=== PATIENT | female | born 1960 ===

== ENCOUNTER 2020-05-11 07:53 | Outpatient (CLI) | payer BC, SELFPAY ==
--- NOTE | 2020-05-11 08:00 | USCV_ITS ---
Ashleigh Salguero Age: 60 Gender: F : 1960 Exam Date: 05/11/2020 08:09 Ordering Phys: Oswaldo Brizuela MD Technologist: Sharif Obrien [place] [facility] [place]: HX RT UE THROMBUS HISTORY: RT ARM BLOOD CLOT PROCEDURES: Venous duplex imaging was performed in only the right upper extremity. The following venous structures were evaluated: internal jugular vein, subclavian vein, axillary vein, and brachial veins. In addition, the basilic vein, cephalic vein, radial vein, and ulnar vein. FINDINGS: THERE IS NON OCCLUDING THROMBUS IN THE RT JUGULAR AND SUBCLAVIAN. THERE ARE COLLATERIAL VEINS IN RT SHOULDER CARRING BLOOD FROM THE ARM VEINS. ONE OF THE BRACHIAL VEINS IN THE RT ARM IS OCCLUDED. THE BASILIC AND CELIPHALIC ARE NORMAL. CONCLUSIONS 1. Features of venous thrombosis involving the right jugular and subclavian veins, causing near total occlusion. Collateral veins are noted in the shoulder region. 2. One of the brachial veins was also found to be occluded. 3. Patent basilic and cephalic vein in the right upper extremity No previous studies available for comparison Dr Greg Ferraro MD [facility] (Electronically Signed) Final Date: 11 May 2020 23:12 S
== END 2020-05-11 07:54 | disposition home or self-care (01) ==
LOC: US 07:56
PROVIDERS: PCP Family Medicine; Visit Provider Family Medicine
DX: Z86.718 Personal history of other venous thrombosis and embolism (principal)
CPT/HCPCS: 93971

== ENCOUNTER 2020-09-01 07:48 | Outpatient (CLI) | payer BC, SELFPAY ==
--- NOTE | 2020-09-01 08:00 | USCV_ITS ---
Ashleigh Salguero Age: 60 Gender: F : 1960 Exam Date: 09/01/2020 08:18 Ordering Phys: Oswaldo Brizuela MD Technologist: Cassandra Amaya [place] [facility] [place] Indication: KNOWN RUE DVT, CURRENTLY ON BLOOD THINNERS HISTORY: KNOWN HISTORY OF RUE DVT PROCEDURES: Comparison:. 05/11/2020. Venous duplex imaging was performed in only the right upper extremity. The following venous structures were evaluated: internal jugular vein, subclavian vein, axillary vein, and brachial veins. In addition, the basilic vein, cephalic vein, radial vein, and ulnar vein. Serial compression, augmentation maneuvers, and spectral Doppler flow evaluation were performed. FINDINGS: Occlusive DVT SEEN in the right IJV, INNOM V, SUBCLAV, AND AXILLARY V. ALL OTHER VEINS APPEAR PATENT. Thrombus slightly improved since the prior exam. CONCLUSIONS Right upper extremity deep venous thrombosis. Persistent but slightly improved DVT. Dr. Melany Cervantes DO (Electronically Signed) Final Date: 01 September 2020 08:58 Amended: 01 September 2020 09:04 C
== END 2020-09-01 07:49 | disposition home or self-care (01) ==
LOC: RAD 07:52
PROVIDERS: PCP Family Medicine; Visit Provider Family Medicine
DX: I82.A11 Acute embolism and thrombosis of right axillary vein (principal)
CPT/HCPCS: 93971

== ENCOUNTER 2021-01-25 07:10 | Outpatient (CLI) | payer BC, SELFPAY ==
--- NOTE | 2021-01-25 07:15 | USCV_ITS ---
Ashleigh Salguero Age: 60 Gender: F : 1960 Exam Date: 01/25/2021 07:36 Ordering Phys: Oswaldo Brizuela MD Technologist: VALENTIN Exam Location: [facility] [place] Indication: ACUTE EMBOLISM AND THROMBUS PROCEDURES: Venous duplex imaging was performed in only the right upper extremity. The following venous structures were evaluated: internal jugular vein, subclavian vein, axillary vein, and brachial veins. Serial compression, augmentation maneuvers, and spectral Doppler flow evaluation were performed. FINDINGS: Thrombus still present today in the right upper extremity within the IJV, Innominate, subclavian, and the axillary. All other veins examined appear free of thrombus at this time. CONCLUSIONS Chronic DVT in the Right Upper extremity veins similiar to 08/31. No new thrombus D/W Dr. Gelacio Ramos MD (Electronically Signed) Final Date: 25 January 2021 16:29 S
== END 2021-01-25 07:11 | disposition home or self-care (01) ==
LOC: US 07:11
PROVIDERS: PCP Family Medicine; Visit Provider Family Medicine
DX: I82.A11 Acute embolism and thrombosis of right axillary vein (principal)
CPT/HCPCS: 93971

== ENCOUNTER 2024-08-05 07:44 | Inpatient (IN) | payer BC, SELFPAY ==
[2024-08-05] VITALS (18 sets, daily range): BP systolic 99–136; BP diastolic 63–82; PULSE 80–108; RESP 16–22; TEMP 36.5–36.9; O2SAT 86–95; BMI 48.4
--- NOTE | 2024-08-05 07:53 | ECG_ITS ---
[facility] Test Date: 2024-08-05 Pat Name: Ashleigh Salguero Department: Room: Gender: Female Traffic Clerk: : 1960 Requested By: Bobby Best Order Number: [id number] Reading MD: KATIE CESAR Measurements Intervals [place] Rate: 100 P: 54 [place]: 141 QRS: -32 QRSD: 85 T: 52 QT: 349 QTc: 451 Interpretive Statements SINUS TACHYCARDIA POSSIBLE LEFT ATRIAL ENLARGEMENT [-0.1mV P-WAVE IN V1/V2] LEFT AXIS DEVIATION [QRS AXIS < -30] LOW QRS VOLTAGE [QRS DEFLECTION < 0.5/1.0 mV IN LIMB/CHEST LEADS] POSSIBLE ANTERIOR MYOCARDIAL INFARCTION , OF INDETERMINATE AGE [30 ms Q WAVE IN V3/V4, OR R < 0.2 mV IN V4] No previous ECG available for comparison Electronically Signed On 08-05-2024 19:03:30 CDT by KATIE CESAR [id number]
--- NOTE | 2024-08-05 08:11 | XRR_ITS ---
PROCEDURE INFORMATION: Exam: XR Chest Exam date and time: 08/05/2024 8:15 AM Age: 64 years old Clinical indication: Shortness of breath; Additional info: Dyspnea/cough TECHNIQUE: Imaging protocol: Radiologic exam of the chest. Views: 1 view. COMPARISON: No relevant prior studies available. FINDINGS: Lungs: Unremarkable. No consolidation. Pleural spaces: Unremarkable. No pleural effusion. No pneumothorax. Heart/Mediastinum: Unremarkable. No cardiomegaly. Bones/joints: Unremarkable. XR/XR chest 1V portable [id number] IMPRESSION: No acute findings.
[2024-08-05 08:25] LABS: Basophils # 0.1 10^3/uL (0.0-0.1); Basophils % 0.9 %; Eosinophils % 0.3 %; Hematocrit 56.9 % (36-47); Lymphocytes # 0.6 10^3/uL (0.8-4.8); Lymphocytes % 9.2 %; Mean Corpuscular HGB Conc 33.2 g/dL (30-55); Mean Corpuscular Hemoglobin 29.4 pg (27-33); Mean Corpuscular Volume 88.5 fl (85-98); Mean Platelet Volume 9.6 fL (7.4-10.4); Monocytes # 0.4 10^3/uL (0.2-0.9); Monocytes % 5.9 %; Neutrophils # 5.81 10^3/uL (1.8-7.7); Neutrophils % 83.4 %; Nucleated Red Blood Cells % 0 %; Platelet Count 210 10^3/cmm (157-399); Red Blood Count 6.43 10^6/uL (3.85-5.65); Red Cell Distribution Width 14.4 % (12.1-15.1); White Blood Count 6.96 10^3/uL (3.29-11.43)
[2024-08-05 08:49] LABS: Alanine Aminotransferase 27 U/L (0-33); Albumin Level 3.8 g/dL (3.5-5.2); Alkaline Phosphatase 121 U/L (35-105); Anion Gap 15.8 (5-19); Aspartate Amino Transferase 21 U/L (0-32); Blood Urea Nitrogen 6 mg/dL (8-23); Calcium 9.1 mg/dL (8.5-10.5); Carbon Dioxide 27 mmol/L (22-29); Chloride 91 mmol/L (98-107); Globulin 3.9 g/dL (1.3-4.6); Glucose 127 mg/dL (65-115); NT Pro B Type Natriuretic Pept 391 pg/mL (0-125); Osmolality Calculated 269 mOsm/kg (285-295); Potassium 3.8 mmol/L (3.5-5.1); Sodium 130 mmol/L (136-145); Total Bilirubin 0.6 mg/dL (0.15-1.2); Total Protein 7.7 g/dL (6.6-8.7)
[2024-08-05 09:06] LABS: Bilirubin Urine Negative (Negative); Blood Urine 3+ (Negative); Glucose Urine UA Negative (Normal); Ketones Urine Negative (Negative); Leukocyte Esterase Urine Negative (Negative); Nitrate Urine Negative (Negative); Protein Urine Negative (Negative); Specific Gravity, Urine 1.006 (1.005-1.030); Urine Appearance Clear (CLEAR); Urine Color Yellow (Yellow); pH Urine 6.5 (5-7)
[2024-08-05 09:11] LABS: Add Urine Microscopic? YES; Bacteria Urine None Seen /hpf; Hyaline Casts Urine 0-4 /lpf; RBC Urine 21-50 /hpf (0-2); Squamous Epithelial Cell Urine 0-5 /hpf (0-5); WBC Urine 0-5 /hpf (0-5)
[2024-08-05 09:22] LABS: Add Urine Culture? Yes
[2024-08-05 09:23] LABS: Influenza A NEGATIVE (Negative); Influenza B NEGATIVE (Negative); Respiratory Syncytial Virus Ce NEGATIVE (Negative); SARS-CoV-2 PCR NEGATIVE (Negative)
--- NOTE | 2024-08-05 09:23 | ED_ITS ---
HPI - SOB/Dyspnea 2 General: Chief Complaint: Shortness of Breath/Dyspnea Stated Complaint: sob Time Seen by Provider: 08/05/24 08:09 History of Present Illness: HPI Narrative: 64-year-old female presents to the emerg ency room complaining of shortness of breath. Patient has a history of a previous PE she also has a history of breast cancer considered to be in remission at this time. She is not currently on any anticoagulation. No chest pain at this time. Is short of breath does not usually use oxygen at home has not had a productive cough. Associated symptoms: Reports chest congestion; Deny abdominal pain, chest pain, fever(s) or hemoptysis Related Data Home Medications ?Medication ?Instructions ?Recorded ?Confirmed acetaminophen 500 mg tablet 500 mg PO Q6H PRN Fever Or Pain 08/05/24 08/05/24 (Tylenol Extra Strength) Allergies Allergy/AdvReac Type Severity Reaction Status Date / Time codeine Allergy N/V Verified 08/05/24 10:57 cortisone Allergy ALGY-Rash Verified 08/05/24 10:57 latex Allergy rash Verified 08/05/24 10:57 nickel Allergy rash Verified 08/05/24 10:57 Penicillins Allergy anaphylaxis Verified 08/05/24 10:57 Review of Systems 2 Const: Denies: fever(s) or chills Card: Denies: chest pain Resp: Reports: dyspnea, non-productive cough, wheezing and chest congestion; Denies: hemoptysis GI: Denies: abdominal pain : Denies: dysuria, urinary frequency or urinary urgency Musc: Denies: neck pain or back pain Skin/Breast: Denies: rash PFSH ED 2 PFSH: Medical History Tobacco abuse Pulmonary embolus Social History Smoking and tobacco/nicotine status: current every day tobacco/nicotine user Alcohol intake: never Substance/Drug Use: never Physical Exam 2 Const: GENERAL APPEARANCE: cooperative ORIENTATION/CONSCIOUSNESS: Yes awake, Yes oriented to person, Yes oriented to place and Yes oriented to time HENMT: COMMON NORMALS: normocephalic, atraumatic and hearing grossly normal bilaterally HEAD & SCALP: normocephalic and atraumatic Resp: AUSCULTATION: wheezes Cardio: COMMON NORMALS: regular rate, regular rhythm and No murmurs present (Cardio) RATE: regular rate RHYTHM: regular rhythm GI: COMMON NORMALS: Soft to palpation and No hepatosplenomegaly present A USCULTATION: Yes normoactive bowel sounds PALPATION: Yes Soft to palpation, No Tenderness to palpation present (GI), No Guarding due to palpation present (GI) and Yes No hepatosplenomegaly present Extremity: COMMON NORMALS: normal to inspection, capillary refill normal, no clubbing, cyanosis or edema, no calf tenderness and no pedal edema Neuro: SENSORIUM/ORIENTATION: Yes oriented to person, Yes oriented to place and Yes oriented to time Skin: COMMON NORMALS: no rashes or lesions noted GENERAL SKIN EXAM: no rashes or lesions noted Course 2 Vital Signs: Vital signs: Vital Signs Temperature 98.1 F 08/05/24 07:53 Pulse Rate 80 08/05/24 14:29 Respiratory Rate 16 08/05/24 14:29 Blood Pressure 104/72 08/05/24 14:29 Pulse Oximetry 93 08/05/24 14:29 Oxygen Delivery Me thod Nasal Cannula 08/05/24 14:11 Oxygen Flow Rate 3 08/05/24 14:11 MDM - SOB/Dyspnea Medical Decision Making Patient improved some with treatment however still requiring 3 L which is a new oxygen requirement for her. No apparent PE on CT there is some Mild bronchial wall thickening suspect this is what is causing exacerbation of her COPD discussed with hospitalist will admit steroids aggressive pulmonary toilet. Medical Records I reviewed the patient's medical records. Lab Data I reviewed the patient's lab results. 08/05/24 08:17 08/05/24 08:17 Labs/Radiology: Radiology Impressions Chest X-Ray 08/05/24 08:11 IMPRESSION: No acute findings. Chest CTA 08/05/24 09:29 IMPRESSION: 1. No evidence of pulmonary embolism. 2. Mild COPD in multifocal pulmonary scarring. Mild fibrotic changes which may be post treatment in nature. 3. Multifocal bronchial wall thickening which can be seen with viral airway disease. Laboratory Results WBC 6.96 10^3/uL (3.29-11.43) 08/05/24 08:17 RBC 6.43 10^6/uL (3.85-5.65) H 08/05/24 08:17 Hgb 18.90 g/dL (11.27-16.99) H 08/05/24 08:17 Hct 56.9 % (36-47) H 08/05/24 08:17 MCV 88.5 fl (85-98) 08/05/24 08:17 MCH 29.4 pg (27-33) 08/05/24 08:17 MCHC 33.2 g/dL (30-55) 08/05/24 08:17 RDW 14.4 % (12.1-15.1) 08/05/24 08:17 Plt Count 210 10^3/cmm (157-399) 08/05/24 08:17 MPV 9.6 fL (7.4-10.4) 08/05/24 08:17 Neut % (Auto) 83.4 % 08/05/24 08:17 Lymph % (Auto) 9.2 % 08/05/24 08:17 [place] % (Auto) 5.9 % 08/05/24 08:17 Eos % (Auto) 0.3 % 08/05/24 08:17 Baso % (Auto) 0.9 % 08/05/24 08:17 Neut # (Auto) 5.81 10^3/uL (1.8-7.7) 08/05/24 08:17 Lymph # (Auto) 0.6 10^3/uL (0.8-4.8) L 08/05/24 08:17 [place] # (Auto) 0.4 10^3/uL (0.2-0.9) 08/05/24 08:17 Eos # (Auto) 0.0 10^3/uL (0.0-0.8) 08/05/24 08:17 Baso # (Auto) 0.1 10^3/uL (0.0-0.1) 08/05/24 08:17 Nucleated RBC % (auto) 0 % 08/05/24 08:17 Nucleated RBCs # 0.0 /100WBC 08/05/24 08:17 Sodium 130 mmol/L (136-145) L 08/05/24 08:17 Potassium 3.8 mmol/L (3.5-5.1) 08/05/24 08:17 Chloride 91 mmol/L (98-107) L 08/05/24 08:17 Carbon Dioxide 27 mmol/L (22-29) 08/05/24 08:17 Anion Gap 15.8 (5-19) 08/05/24 08:17 BUN 6 mg/dL (8-23) L 08/05/24 08:17 Creatinine 0.6 mg/dL (0.5-0.9) 08/05/24 08:17 GFR Calculation 101.0 mL/min (90-130) 08/05/24 08:17 Glucose 127 mg/dL (65-115) H 08/05/24 08:17 Calculated Osmolality 269 mOsm/kg (285-295) L 08/05/24 08:17 Calcium 9.1 mg/dL (8.5-10.5) 08/05/24 08:17 Total Bilirubin 0.6 mg/dL (0.15-1.2) 08/05/24 08:17 AST 21 U/L (0-32) 08/05/24 08:17 ALT 27 U/L (0-33) 08/05/24 08:17 Alkaline Phosphatase 121 U/L (35-105) H 08/05/24 08:17 NT-Pro-B Natriuret Pep 391 pg/mL (0-125) H 08/05/24 08:17 NT-Pro-B Natriuret Pep 394 pg/mL (0-125) H 08/05/24 08:17 Total Protein 7.7 g/dL (6.6-8.7) 08/05/24 08:17 Albumin 3.8 g/dL (3.5-5.2) 08/05/24 08:17 Globulin 3.9 g/dL (1.3-4.6) 08/05/24 08:17 Urine Color Yellow (Yellow) 08/05/24 08:52 Urine Appearance Clear (CLEAR) 08/05/24 08:52 Urine pH 6.5 (5-7) 08/05/24 08:52 Ur Specific [place] 1.006 (1.005-1.030) 08/05/24 08:52 Urine Protein Negative (Negative) 08/05/24 08:52 Urine Glucose (UA) Negative (Normal) 08/05/24 08:52 Urine Ketones Negative (Negative) 08/05/24 08:52 Urine Blood 3+ (Negative) A 08/05/24 08:52 Urine Nitrate Negative (Negative) 08/05/24 08:52 Urine Bilirubin Negative (Negative) 08/05/24 08:52 Urine Urobilinogen 1.0 mg/dL (Negative) 08/05/24 08:52 Ur Leukocyte Esterase Negative (Negative) 08/05/24 08:52 Urine RBC 21-50 /hpf (0-2) H 08/05/24 08:52 Urine WBC 0-5 /hpf (0-5) 08/05/24 08:52 Ur Squamous Epith Cells 0-5 /hpf (0-5) 08/05/24 08:52 Amorphous Sediment Not Reportable 08/05/24 08:52 Urine Bacteria None seen /hpf (NONE) 08/05/24 08:52 Hyaline Casts 0-4 /lpf H 08/05/24 08:52 Influenza A (PCR) Negative (Negative) 08/05/24 08:17 Influenza Type B (PCR) Negative (Negative) 08/05/24 08:17 RSV (PCR) Negative (Negative) 08/05/24 08:17 SARS-CoV-2 (PCR) Negative (Negative) 08/05/24 08:17 All radiology interpretation(s) finalized by discharge Discharge Plan Discharge Patient Disposition: Admitted As Inpatient Admit Provider: Reginald Mcclure Clinical Impression: COPD with acute exacerbation, Breast cancer, Hx of pulmonary embolus Condition: Stable Coding Level of Care Code ED Language Instructor for Michelle Meier
--- NOTE | 2024-08-05 09:29 | CTR_ITS ---
PROCEDURE INFORMATION: Exam: CTA Chest With Contrast Exam date and time: 08/05/2024 9:39 AM Age: 64 years old Clinical indication: Dyspnea; Prior surgery; Surgery date: 6+ months; Surgery type: 2x mastectomy; Additional info: Dyspnea/hx pe/hx breast CA TECHNIQUE: Imaging protocol: Computed tomographic angiography of the chest with contrast. Exam focused on the arteries. 3D rendering (Not supervised by radiologist): MIP and/or 3D reconstructed images were created by the technologist. Radiation optimization: All CT scans at this facility use at least one of these dose optimization techniques: automated exposure control; mA and/or kV adjustment per patient size (includes targeted exams where dose is matched to clinical indication); or iterative reconstruction. Contrast material: OMNIPAQUE 350; Contrast volume: 100 ml; Contrast route: INTRAVENOUS (IV); COMPARISON: CR (CHEST, ) 08/05/2024 8:15 AM RADIATION DOSE METRICS: Total DLP (mGy-cm): 548.81 FINDINGS: Pulmonary arteries: Normal. No pulmonary emboli. Aorta: Unremarkable. No aortic aneurysm. No aortic dissection. Lungs: There is mild COPD and mild multifocal pulmonary scarring. Mild fibrotic changes are seen along the anterior right upper lobe and right middle lobe. There is multifocal bronchial wall thickening identified. Pleural spaces: Unremarkable. No pneumothorax. No pleural effusion. Heart: Unremarkable. No cardiomegaly. No pericardial effusion. Lymph nodes: Unremarkable. No enlarged lymph nodes. Bones/joints: Unremarkable. No acute fracture. Soft tissues: Unremarkable. CT/CT angio chest PE protcl [id number] IMPRESSION: 1. No evidence of pulmonary embolism. 2. Mild COPD in multifocal pulmonary scarring. Mild fibrotic changes which may be post treatment in nature. 3. Multifocal bronchial wall thickening which can be seen with viral airway disease.
[2024-08-05] MEDS: iohexol 350 mg/mL 500 mL Btl (per mL) IV (09:56)
--- NOTE | 2024-08-05 10:45 | PC.NURSE ---
informed of spo2 ranging 88-90 on RA. okayed placing pt on 1-2 L NC PRN.
[2024-08-05] MEDS: methylPREDNISolone sod succ 125 mg/2 mL INJ IVP (10:53)
[2024-08-05] MEDS: ipratropium-albuterol 3 mL Neb INHALATION ×4 (11:10→20:50)
[2024-08-05 12:57] LABS: ABG PCO2 42.2 mmHg (35-45); ABG PH Result 7.43 (7.35-7.45); Alveolar-Arterial Oxygen Gradi 13.6 mmHg (5-10); Arterial Blood Gas Hematocrit 59.4 % (37-47); Base Excess ABG 2.8 mmol/L (-2.0-2.0); Blood Gas Allen Test Pos; Blood Gas Operator Identificat MONRO; Blood Gas Sample Site Radial, left; Blood Gas Sample Type Arterial; HCO3 ABG 27.7 mmol/L (22-26); HGB O2 Sat 91.9 % (95-100); Ionized Calcium Level - ABG 1.1 mmol/L (1.1-1.4); Methemoglobin 0.7 % (0.4-1.5); Oxygen Device NC; Oxygen Saturation ABG 95.5; PO2 ABG 71.5 mmHg (80.0-100.0); PO2 FiO2 Ratio Arterial Blood 223; Potassium Level - ABG 3.6 mmol/L (3.5-5.0); Total Hemoglobin 19.4 g/dL (12-16)
[2024-08-05 13:10] LABS: Troponin(5th) Baseline < 6 ng/L (0-10)
[2024-08-05 13:43] LABS: NT Pro B Type Natriuretic Pept 394 pg/mL (0-125)
--- NOTE | 2024-08-05 14:24 | P.HP_ITS ---
Providers/Chief Complaint 2 Admitting Physician: Reginald Mclcure MD Primary Care Provider: Oswaldo Brizuela MD Chief Complaint: sob History of Present Illness Ashleigh Salguero is a 64 year old female with a past medical history of breast cancer status post bilateral mastectomy, history of DVT right axillary vein, history of pulmonary embolism, not on anticoagulant therapy, who presents to [facility] due to complaints of shortness of breath. Patient tells me that she has been smoking since she is 9 years old, she does not have a formal diagnosis of COPD, she does report recent increased shortness of breath, increased wheezing, does have a nonproductive cough, no fevers, no chills, she quit smoking a few days ago, no chest pain, no palpitations, Review of Systems 2 Const: Denies: fever(s) or chills Card: Denies: chest pain Resp: Reports: dyspnea GI: Denies: abdominal pain Medications/Allergies Home Medications ?Medication ?Instructions ?Recorded ?Confirmed ?Last Taken ?Type acetaminophen 500 mg tablet 500 mg PO Q6H PRN Fever Or Pain 08/05/24 08/05/24 Unknown History (Tylenol Extra Strength) Allergies Allergy/AdvReac Type Severity Reaction Status Date / Time codeine Allergy N/V Verified 08/05/24 10:57 cortisone Allergy ALGY-Rash Verified 08/05/24 10:57 latex Allergy rash Verified 08/05/24 10:57 nickel Allergy rash Verified 08/05/24 10:57 Penicillins Allergy anaphylaxis Verified 08/05/24 10:57 PFSH Acute 2 PFSH: Medical History Tobacco abuse Pulmonary embolus Social History Smoking and tobacco/nicotine status: current every day tobacco/nicotine user Alcohol intake: never Substance/Drug Use: never Vitals/I&O/Wt Last Vital Signs Temp 98.1 F 08/05/24 07:53 Pulse 89 08/05/24 14:11 Resp 16 08/05/24 14:11 BP 104/72 08/05/24 14:11 Pulse Ox 90 08/05/24 14:11 O2 Del Method Nasal Cannula 08/05/24 14:11 O2 Flow Rate 3 08/05/24 14:11 Weight last 48 hrs Weight 108.862 kg Physical Exam 2 Const: COMMON NORMALS: no acute distress and patient oriented x3 Eye: COMMON NORMALS: Equal, round and reactive pupils present and EOMs intact bilaterally Resp: COMMON NORMALS: normal respiratory effort, No retractions and No use of accessory muscles AUSCULTATION: crackles and wheezes Cardio: COMMON NORMALS: no JVD, regular rate, regular rhythm, S1 normal heart sound present and S2 normal heart sound present RATE: regular rate RHYTHM: regular rhythm HEART SOUNDS: S1 normal heart sound present and S2 normal heart sound present GI: COMMON NORMALS: Normal to inspection, nondistended, normoactive bowel sounds present, Soft to palpation and non-tender Extremity: COMMON NORMALS: no pedal edema Neuro: COMMON NORMALS: patient oriented x3, CN's II-XII intact bilaterally and moves all extremities Psych: COMMON NORMALS: mental status grossly normal Data 08/05/24 08:17 08/05/24 08:17 A&P Assessment and plan (1) COPD with acute exacerbation: Plan Acute COPD exacerbation, with hypoxia, CTA CT/CT angio chest PE protcl [id number] IMPRESSION: 1. No evidence of pulmonary embolism. 2. Mild COPD in multifocal pulmonary scarring. Mild fibrotic changes which may be post treatment in nature. 3. Multifocal bronchial wall thickening which can be seen with viral airway disease. Plan - Monitor respiratory status closely - DuoNeb - Budesonide - Solu-Medrol 40 mg IV every 8 hours - Continue doxycycline - Full code - Lovenox for DVT prophylaxis PDMP PDMP Reviewed: Not Reviewed Attestations 2 Medical Necessity Statement*: Patient requires hospitalization, inpatient, greater than 2 midnights for acute COPD exacerbation Diagnoses COPD with acute exacerbation J44.1
--- NOTE | 2024-08-05 14:34 | ECG_ITS ---
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: : 1960 Requested By: Bobby Best Order Number: [id number] Reading MD: KATIE CESAR Measurements Intervals [place] Rate: 88 P: 59 [place]: 156 QRS: -24 QRSD: 84 T: 36 QT: 378 QTc: 459 Interpretive Statements SINUS RHYTHM POSSIBLE LEFT ATRIAL ENLARGEMENT [-0.1mV P-WAVE IN V1/V2] LOW QRS VOLTAGE [QRS DEFLECTION < 0.5/1.0 mV IN LIMB/CHEST LEADS] ANTEROSEPTAL MYOCARDIAL INFARCTION , OF INDETERMINATE AGE [40+ ms Q WAVE IN V1-V4] Compared to ECG 08/05/2024 07:53:10 Sinus tachycardia no longer present Left-axis deviation no longer present Myocardial infarct finding still present Electronically Signed On 08-05-2024 19:07:08 CDT by KATIE CESAR [email or web address]
--- NOTE | 2024-08-05 14:56 | PC.SOCIAL ---
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 She had no oxygen, nebulizer, or cpap or bipap at home. Patient does have a walker, cane, and a wheelchair that she personally perchased from second hand stores. Does not have any advanced directives or a living will, and no durable power of estate attorney at this time.
[2024-08-05 15:34] LABS: Estmated Average Glucose 134; Hemoglobin A1C 6.3 % (4.0-6.0)
[2024-08-05 15:45] LABS: Troponin 5 2HR < 6.0 ng/L (0-10); Troponin 5 2HR Delta 0 ABS# (0-10)
[2024-08-05 15:52] LABS: Thyroid Stimulating Hormone 5.18 uIU/mL (0.27-4.20)
[2024-08-05] MEDS: enoxaparin 40 mg/0.4 mL Syringe SUBCUT (15:57)
[2024-08-05] MEDS: pantoprazole 40 mg SDV IVP (15:57)
[2024-08-05] MEDS: doxycycline 100 mg Tablet PO (17:43)
--- NOTE | 2024-08-05 18:19 | ECG_ITS ---
[employer] [facility] Test Date: 2024-08-05 Pat Name: Ashleigh Salguero Department: Room: 253 Gender: Female Staff Radiation Therapist: : 1960 Requested By: Bobby Best Order Number: [id number] Reading MD: KATIE CESAR Measurements Intervals [place] Rate: 89 P: 63 [place]: 159 QRS: -22 QRSD: 86 T: 67 QT: 375 QTc: 457 Interpretive Statements SINUS RHYTHM POSSIBLE LEFT ATRIAL ENLARGEMENT [-0.1mV P-WAVE IN V1/V2] LOW QRS VOLTAGE [QRS DEFLECTION < 0.5/1.0 mV IN LIMB/CHEST LEADS] POSSIBLE ANTERIOR MYOCARDIAL INFARCTION , OF INDETERMINATE AGE [30 ms Q WAVE IN V3/V4, OR R < 0.2 mV IN V4] Compared to ECG 08/05/2024 15:59:30 No significant changes Electronically Signed On 08-05-2024 19:07:00 CDT by KATIE CESAR [email or web address]
[2024-08-05] MEDS: budesonide 0.5 mg/2 mL Neb INHALATION (20:50)
[2024-08-06] VITALS (7 sets, daily range): BP systolic 110–130; BP diastolic 71–79; PULSE 79–95; RESP 16–20; TEMP 36.3–36.6; O2SAT 86–95
[2024-08-06] MEDS: methylPREDNISolone sod succ 40 mg/mL INJ IVP (05:17)
[2024-08-06 06:19] LABS: Basophils % 0.4 %; Hematocrit 55.9 % (36-47); Lymphocytes # 0.5 10^3/uL (0.8-4.8); Lymphocytes % 8.9 %; Mean Corpuscular HGB Conc 32.6 g/dL (30-55); Mean Corpuscular Hemoglobin 28.8 pg (27-33); Mean Corpuscular Volume 88.4 fl (85-98); Mean Platelet Volume 10.1 fL (7.4-10.4); Monocytes # 0.4 10^3/uL (0.2-0.9); Monocytes % 6.8 %; Neutrophils # 4.42 10^3/uL (1.8-7.7); Neutrophils % 83.7 %; Nucleated Red Blood Cells % 0 %; Platelet Count 217 10^3/cmm (157-399); Red Blood Count 6.32 10^6/uL (3.85-5.65); Red Cell Distribution Width 14.4 % (12.1-15.1); White Blood Count 5.28 10^3/uL (3.29-11.43)
[2024-08-06 06:45] LABS: Anion Gap 17.7 (5-19); Blood Urea Nitrogen 11 mg/dL (8-23); Calcium 9.2 mg/dL (8.5-10.5); Carbon Dioxide 26 mmol/L (22-29); Chloride 96 mmol/L (98-107); Creatinine Clr Calc Pharmacy 157.3724; Glucose 118 mg/dL (65-115); Osmolality Calculated 282 mOsm/kg (285-295); Potassium 3.7 mmol/L (3.5-5.1); Sodium 136 mmol/L (136-145)
[2024-08-06] MEDS: doxycycline 100 mg Tablet PO (07:44)
[2024-08-06] MEDS: ipratropium-albuterol 3 mL Neb INHALATION (08:51)
[2024-08-06] MEDS: budesonide 0.5 mg/2 mL Neb INHALATION (08:51)
--- NOTE | 2024-08-06 10:16 | PC.CHAP ---
Pastoral Care Encounter/Spiritual Assessment Type of Contact [] Declined decal cutter visit [] Patient/Family/Request visit [] Outpatient visit [] Follow-up visit [] Physician referral [] Code/Alert [x] Routine visit [] Staff referral [] Actively dying [] Patient sleeping [] Family support [] [] Out of room [] Palliative care [] [] Receiving care in room [] Pre-surgical visit [] Trauma [] Long length of stay [] ICU visit [] Other: Relational/Emotional Strength [x] Patient feels connected with others/family/visitors/staff [] Distress [] Loneliness/isolation [] Abandonment Spirituality of Patient [x] Person of [place] [] Attends Holiness of their [place] [x] Believes in Prayer [] Reads Bible or Uatsdin materials [] There are Spiritual issues to be addressed Food Counselor Interventions [x] Prayer [x] Active listening [] Non-anxious presence [x] Spiritual/emotional support [] Crisis/trauma care [] Spiritual counseling [] Bereavement support [] Provided bereavement packet [] Provided Bible/devotional materials [] Provided toy/stuffed animal, coloring book to patient or family member [] Provided Communion [] Anointing/[place] [] Salvation [x] Completed spiritual assessment [] Other: Impact on Illness or Injury [] Angry [] Fearful [] Anxious [] Often cries [] Exhaustion [] Unable to work [] Unable to attend adventism [] Unable to walk/stand [] Unable to read [] Unable to drive [] Unable to eat/drink [] Unable to sleep [] Unable to be with family [] Patient intubated [] Other: Summary Time spent with patient 5 min
--- NOTE | 2024-08-06 12:26 | P.DS_ITS ---
Discharge Providers Date of Admission: 08/05/24 12:29 Date of Discharge: August 06, 2024 Attending Provider at Admission: Reginald Mcclure MD Attending Provider at Discharge: Reginald Mcclure MD Primary Care Provider: Oswaldo Brizuela MD Diagnoses at Discharge Discharge Diagnosis (1) COPD with acute exacerbation: Status: Acute Reason for Visit Reason for Visit: sob Hospital Course Hospital Course Ashleigh Salguero is a 64 year old female with a past medical history of breast cancer status post bilateral mastectomy, history of DVT right axillary vein, history of pulmonary embolism, not on anticoagulant therapy, who presents to [facility] due to complaints of shortness of breath. Patient tells me that she has been smoking since she is 9 years old, she does not have a formal diagnosis of COPD, she does report recent increased shortness of breath, increased wheezing, does have a nonproductive cough, no fevers, no chills, she quit smoking a few days ago, no chest pain, no palpitations, Patient was admitted to [facility] for COPD exacerbation, received oxygen therapy, steroid therapy, oral antibiotic therapy overall clinically improved. Will be discharged on a prednisone burst, doxycycline, albuterol, Advair with a close follow-up with primary care provider as outpatient. I had offered to refer patient to pulmonary however patient has declined, she wants to talk to Dr. Brizuela Patient does not have a formal diagnosis of COPD, CT imaging does show mild COPD in multifocal pulmonary scarring. Follow-up with Dr. Brizuela, discharged on Advair, albuterol. She did receive radiation therapy for her history of breast cancer, certainly imaging findings could be from radiation treatment. Patient was a smoker she has recently quit smoking, advised to continue smoking cessation counseling Patient did require oxygen on discharge Patient does have erythrocytosis on her blood work, hemoglobin 18.2, and her urine was positive for blood, 21-50RBCs. She is declined to follow-up with specialists in [place]. I have strongly recommended for her to follow-up with Dr. Brizuela as outpatient. Consider repeating CBC in 1 week, with repeat UA. If patient continues to have hematuria, and erythrocytosis she will need to have CT imaging of her kidneys to rule out renal cell carcinoma, EPO levels, and further workup. But potentially erythrocytosis could be from her smoking history, and hypoxia from COPD. Physical Exam Const: COMMON NORMALS: no acute distress and patient oriented x3 Resp: COMMON NORMALS: normal respiratory effort, No retractions, No use of accessory muscles and clear to auscultation bilaterally AUSCULTATION: clear to auscultation bilaterally Cardio: COMMON NORMALS: regular rate, regular rhythm, S1 normal heart sound present and S2 normal heart sound present RATE: regular rate RHYTHM: regular rhythm HEART SOUNDS: S1 normal heart sound present and S2 normal heart sound present GI: COMMON NORMALS: Normal to inspection, nondistended, normoactive bowel sounds present and non-tender Extremity: COMMON NORMALS: no pedal edema Neuro: COMMON NORMALS: patient oriented x3 Psych: COMMON NORMALS: mental status grossly normal Discharge Data Studies Completed and Pending Completed Studies During Hospitalization Category Date Time Status CT angio chest PE protcl [id number] Stat Cat Scan 08/05/24 09:29 Completed XR chest 1V portable [id number] Stat Exams 08/05/24 08:11 Completed Pending at discharge Category Date Time Status Basic Metabolic Panel AM LABS Lab 08/07/24 04:00 Ordered Basic Metabolic Panel AM LABS Lab 08/08/24 04:00 Ordered Blood Culture Stat Lab 08/05/24 14:51 Results Complete Blood Count w/Auto AM LABS Lab 08/07/24 04:00 Ordered Complete Blood Count w/Auto AM LABS Lab 08/08/24 04:00 Ordered Troponin(5th) 6 hour. Timed Lab 08/05/24 18:34 Ordered Urine Culture Stat Lab 08/05/24 08:52 Results Radiology Impressions Chest X-Ray 08/05/24 08:11 IMPRESSION: No acute findings. Chest CTA 08/05/24 09:29 IMPRESSION: 1. No evidence of pulmonary embolism. 2. Mild COPD in multifocal pulmonary scarring. Mild fibrotic changes which may be post treatment in nature. 3. Multifocal bronchial wall thickening which can be seen with viral airway disease. Laboratory Results WBC 5.28 10^3/uL (3.29-11.43) 08/06/24 05:11 RBC 6.32 10^6/uL (3.85-5.65) H 08/06/24 05:11 Hgb 18.20 g/dL (11.27-16.99) H 08/06/24 05:11 Hct 55.9 % (36-47) H 08/06/24 05:11 MCV 88.4 fl (85-98) 08/06/24 05:11 MCH 28.8 pg (27-33) 08/06/24 05:11 MCHC 32.6 g/dL (30-55) 08/06/24 05:11 RDW 14.4 % (12.1-15.1) 08/06/24 05:11 Plt Count 217 10^3/cmm (157-399) 08/06/24 05:11 MPV 10.1 fL (7.4-10.4) 08/06/24 05:11 Neut % (Auto) 83.7 % 08/06/24 05:11 Lymph % (Auto) 8.9 % 08/06/24 05:11 [place] % (Auto) 6.8 % 08/06/24 05:11 Eos % (Auto) 0.0 % 08/06/24 05:11 Baso % (Auto) 0.4 % 08/06/24 05:11 Neut # (Auto) 4.42 10^3/uL (1.8-7.7) 08/06/24 05:11 Lymph # (Auto) 0.5 10^3/uL (0.8-4.8) L 08/06/24 05:11 [place] # (Auto) 0.4 10^3/uL (0.2-0.9) 08/06/24 05:11 Eos # (Auto) 0.0 10^3/uL (0.0-0.8) 08/06/24 05:11 Baso # (Auto) 0.0 10^3/uL (0.0-0.1) 08/06/24 05:11 Nucleated RBC % (auto) 0 % 08/06/24 05:11 Nucleated RBCs # 0.0 /100WBC 08/06/24 05:11 Specimen Type Arterial 08/05/24 12:45 Sample Site Radial, left 08/05/24 12:45 ABG pH 7.43 (7.35-7.45) 08/05/24 12:45 ABG pCO2 42.2 mmHg (35-45) 08/05/24 12:45 ABG pO2 71.5 mmHg (80.0-100.0) L 08/05/24 12:45 ABG PO2/FiO2 Ratio 223 08/05/24 12:45 ABG HCO3 27.7 mmol/L (22-26) H 08/05/24 12:45 ABG O2 Saturation 95.5 08/05/24 12:45 ABG Base Excess 2.8 mmol/L (-2.0-2.0) H 08/05/24 12:45 Simba Test Pos 08/05/24 12:45 A-a O2 Gradient 13.6 mmHg (5-10) H 08/05/24 12:45 Hematocrit 59.4 % (37-47) H 08/05/24 12:45 Hgb O2 Saturation 91.9 % (95-100) L 08/05/24 12:45 Carboxyhemoglobin 3.0 %THgb (0.4-20.1) 08/05/24 12:45 Methemoglobin 0.7 % (0.4-1.5) 08/05/24 12:45 Total Hemoglobin 19.4 g/dL (12-16) H 08/05/24 12:45 Sodium 133.0 mmol/L (131-143) 08/05/24 12:45 Potassium 3.6 mmol/L (3.5-5.0) 08/05/24 12:45 Glucose 141.0 mg/dL (70-115) H 08/05/24 12:45 Ionized Calcium 1.1 mmol/L (1.1-1.4) 08/05/24 12:45 O2 Delivery Device Nc 08/05/24 12:45 O2 Liters/Min 3.0 % 08/05/24 12:45 FiO2 32.0 % 08/05/24 12:45 Business Development Coordinator ID [place] 08/05/24 12:45 Sodium 136 mmol/L (136-145) 08/06/24 05:11 Potassium 3.7 mmol/L (3.5-5.1) 08/06/24 05:11 Chloride 96 mmol/L (98-107) L 08/06/24 05:11 Carbon Dioxide 26 mmol/L (22-29) 08/06/24 05:11 Anion Gap 17.7 (5-19) 08/06/24 05:11 BUN 11 mg/dL (8-23) 08/06/24 05:11 Creatinine 0.6 mg/dL (0.5-0.9) 08/06/24 05:11 GFR Calculation 101.0 mL/min (90-130) 08/06/24 05:11 Glucose 118 mg/dL (65-115) H 08/06/24 05:11 Estimat Average Glucose 134 08/05/24 14:51 Hemoglobin A1c 6.3 % (4.0-6.0) H 08/05/24 14:51 Calculated Osmolality 282 mOsm/kg (285-295) L 08/06/24 05:11 Calcium 9.2 mg/dL (8.5-10.5) 08/06/24 05:11 Total Bilirubin 0.6 mg/dL (0.15-1.2) 08/05/24 08:17 AST 21 U/L (0-32) 08/05/24 08:17 ALT 27 U/L (0-33) 08/05/24 08:17 Alkaline Phosphatase 121 U/L (35-105) H 08/05/24 08:17 Troponin T Baseline < 6 ng/L (0-10) 08/05/24 12:48 Troponin T 120 Minute < 6.0 ng/L (0-10) 08/05/24 14:51 Delta Troponin T 0 ABS# (0-10) 08/05/24 14:51 NT-Pro-B Natriuret Pep 391 pg/mL (0-125) H 08/05/24 08:17 NT-Pro-B Natriuret Pep 394 pg/mL (0-125) H 08/05/24 08:17 Total Protein 7.7 g/dL (6.6-8.7) 08/05/24 08:17 Albumin 3.8 g/dL (3.5-5.2) 08/05/24 08:17 Globulin 3.9 g/dL (1.3-4.6) 08/05/24 08:17 TSH 5.18 uIU/mL (0.27-4.20) H 08/05/24 14:51 Urine Color Yellow (Yellow) 08/05/24 08:52 Urine Appearance Clear (CLEAR) 08/05/24 08:52 Urine pH 6.5 (5-7) 08/05/24 08:52 Ur Specific [place] 1.006 (1.005-1.030) 08/05/24 08:52 Urine Protein Negative (Negative) 08/05/24 08:52 Urine Glucose (UA) Negative (Normal) 08/05/24 08:52 Urine Ketones Negative (Negative) 08/05/24 08:52 Urine Blood 3+ (Negative) A 08/05/24 08:52 Urine Nitrate Negative (Negative) 08/05/24 08:52 Urine Bilirubin Negative (Negative) 08/05/24 08:52 Urine Urobilinogen 1.0 mg/dL (Negative) 08/05/24 08:52 Ur Leukocyte Esterase Negative (Negative) 08/05/24 08:52 Urine RBC 21-50 /hpf (0-2) H 08/05/24 08:52 Urine WBC 0-5 /hpf (0-5) 08/05/24 08:52 Ur Squamous Epith Cells 0-5 /hpf (0-5) 08/05/24 08:52 Amorphous Sediment Not Reportable 08/05/24 08:52 Urine Bacteria None seen /hpf (NONE) 08/05/24 08:52 Hyaline Casts 0-4 /lpf H 08/05/24 08:52 Influenza A (PCR) Negative (Negative) 08/05/24 08:17 Influenza Type B (PCR) Negative (Negative) 08/05/24 08:17 RSV (PCR) Negative (Negative) 08/05/24 08:17 SARS-CoV-2 (PCR) Negative (Negative) 08/05/24 08:17 Vitals Last Vital Signs Temp 97.7 F 08/06/24 11:19 Pulse 95 08/06/24 11:19 Resp 20 H 08/06/24 11:19 BP 115/72 08/06/24 11:19 Pulse Ox 92 08/06/24 11:19 O2 Del Method Nasal Cannula 08/06/24 11:19 O2 Flow Rate 3 08/06/24 09:03 Discharge Plan Discharge Patient Disposition: Home Condition: Stable Prescriptions: New doxycycline monohydrate 100 mg Tablet 100 mg PO BID 5 Days Qty: 10 0RF prednisone 10 mg tablet 10 mg PO DAILY Qty: 53 0RF Rx Instructions: Take 4 tabs(40mg) a day for 5 days, 3 tabs a day for 5 days, 2 tabs for 5 days, 1 tab a day for 5 days, 0.5 tabs a day for 5 days albuterol sulfate [Ventolin HFA] 90 mcg/actuation HFA aerosol inhaler 1 inh inhalation Q6H PRN (Reason: shortness of breath or wheezing) Qty: 8.5 0RF fluticasone propion-salmeterol [Advair Diskus] 100-50 mcg/dose blister with device 1 inh inhalation Q12H 30 Days Qty: 60 0RF Continued acetaminophen [Tylenol Extra Strength] 500 mg Tablet 500 mg PO Q6H PRN (Reason: Fever Or Pain) Discharge Orders: Discharge Order (Routine); Ordered 08/06/24 Ordered By: Reginald Mcclure Other Ambulatory Orders: DME: Oxygen (Order) Location: None Selected Ordered By: Reginald Mcclure Referrals: Oswaldo Brizuela MD [Primary Care Provider, [facility]] - 08/08/24 11:30 am Discharge Diet: Cardiac Discharge Activity: Resume usual activity Patient Instructions: Doxycycline (By mouth), Albuterol (By breathing), Prednisone (By mouth), Fluticasone/Salmeterol (By breathing), How to Stop Smoking (GEN), Using Oxygen at Home (GEN), Opioid Safety Activity Restrictions/Additional Instructions: - Please stop smoking - Please have your primary care provider monitor your hemoglobin Discharge Attestations Time Spent in Discharge Care*: greater than 30 min Quality Metrics Clinical Quality Measures [ No reported AMI, CVA or VTE this stay] Coding Level of Care Code 40976 Total time (in minutes) for Discharge: 45 Diagnoses COPD with acute exacerbation J44.1
== END 2024-08-06 12:40 | disposition home or self-care (01) | DRG 192 ==
LOC: ER 09:26 → MEDSURG 14:42
PROVIDERS: Admitting Provider Family Medicine; Emergency Provider Family Medicine; PCP Family Medicine; Visit Provider Family Medicine
DX: J44.1 Chronic obstructive pulmonary disease with (acute) exacerbation (principal); R71.8 Other abnormality of red blood cells; F17.200 Nicotine dependence, unspecified, uncomplicated; Z85.3 Personal history of malignant neoplasm of breast; Z86.718 Personal history of other venous thrombosis and embolism; Z86.711 Personal history of pulmonary embolism
CPT/HCPCS: 36415; 36600; 71045; 71275; 80048; 80051; 80053; 81001; 82330; 82805; 83036; 83880; 84443; 84484; 85025; 87040; 87086; 87637; 93005; 94640; 94760; 96372; 96374; 99285; J1650; J2470; J2919; J7626; J9999